=== PATIENT | female | born 1990 | race Caucasian/White ===

== ENCOUNTER 2024-07-18 14:34 | Emergency (ER) | payer OTHER ==
[~2024-07-18] VITALS: Ht 167.6 cm; Wt 54.5 kg
[2024-07-18 14:37] VITALS: BP 159/97; PULSE 99; RESP 16; TEMP 98.3; O2SAT 98
[2024-07-18] MEDS ORDERED: IBUP-45 PO (14:37)
[2024-07-18] MEDS ORDERED: TraMADol HCL 50 MG TABLET PO ONE (15:45)
[2024-07-18] MEDS: TraMADol HCL 50 MG TABLET PO ONE (15:48)
[2024-07-18] MEDS: KETOROLAC TROMETHAMINE 30 MG/ML VIAL IM ONE (15:49)
[2024-07-18 16:07] LABS: BASOPHILS % (AUTO) 0.5 % (0.0-2.0); EOSINOPHILS % (AUTO) 1.3 % (1.0-6.0); HEMATOCRIT 41.3 % (36-46); HEMOGLOBIN 13.6 g/dL (12.0-16.0); LYMPHOCYTES # (AUTO) 1.5 K/uL (1.0-4.8); LYMPHOCYTES % (AUTO) 22.5 % (22.0-44.0); MEAN CORPUSCULAR HEMOGLOBIN 29.1 pg (26.0-34.0); MEAN CORPUSCULAR HGB CONC 32.9 G/dL (31.0-37.0); MEAN CORPUSCULAR VOLUME 89 fL (80-100); MONOCYTES # (AUTO) 0.5 K/uL (0.1-1.0); MONOCYTES % (AUTO) 7.5 % (2.0-9.0); NEUTROPHILS # (AUTO) 4.7 K/uL (1.8-7.7); NEUTROPHILS % (AUTO) 68.2 % (40.0-70.0); PLATELET COUNT (AUTO) 299 K/uL (150-450); RED BLOOD CELL COUNT(AUTO) 4.66 MIL/uL (4.00-5.20); WHITE BLOOD COUNT (AUTO) 6.8 K/uL (4.5-11.0)
[2024-07-18 16:13] LABS: ANION GAP 9 mmol/L (8-16); CARBON DIOXIDE 29 mmol/L (22-29); CHLORIDE 101 mmol/L (98-107); CREATININE 1.02 mg/dL (0.60-1.30); GLOMERULAR FILTR. RATE CALC > 60 mL/min (>60); GLUCOSE,RANDOM 96 mg/dL (70-110); POTASSIUM 3.5 mmol/L (3.5-5.1); SODIUM SERUM 139 mmol/L (136-145); UREA NITROGEN, BLOOD 9 mg/dL (7-18)
[2024-07-18 16:17] LABS: CALCIUM, TOTAL 8.7 mg/dL (8.8-10.5)
[2024-07-18] MEDS ORDERED: TRAM50TA5 PO (16:55)
== END 2024-07-18 17:20 | disposition home or self-care (01) ==
LOC: EMS 14:39
DX: M75.31 Calcific tendinitis of right shoulder (principal)
CPT/HCPCS: 99284; 80048; 84703; 85025; 36415; 73030; 96372; J1885